=== PATIENT | male | born 1980 | race Two or more races ===

== ENCOUNTER 2025-03-01 16:53 | Emergency (ER) | payer OTHER ==
[~2025-03-01] VITALS: Ht 162.6 cm; Wt 96.6 kg
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
[2025-03-01 18:00] LABS: Urine Bacteria None Seen /hpf (None Seen)
[2025-03-01] MEDS: TETANUS-DIPTH-ACEL PERTUSSIS 0.5ML SYR Tdap IM ONE (18:06)
[2025-03-01] MEDS: LIDOCAINE 1% HCL (LOCAL ANESTH.) INJ 20ML MDV ID ONE (18:06)
[2025-03-01 18:07] VITALS: PULSE 120; RESP 20; O2SAT 95
[2025-03-01 18:08] LABS: Urine Blood Negative /uL (Negative); Urine Clarity Clear (Clear); Urine Color Colorless (Yellow); Urine Protein, UAD Negative (Negative); Urine Specific Gravity 1.004 (1.001-1.035); Urine Squamous Epithelial Cell None Seen /hpf (<5); Urine Urobilinogen Normal (Negative); Urine WBC < 1 /HPF (0-3)
--- NOTE | 2025-03-01 18:40 | DVH ---
CHEST RADIOGRAPH Indication: injury Technique: Single frontal view of the chest was obtained Comparison: None FINDINGS: Lines and Tubes: None Lungs and Pleura: No focal consolidation. No effusion. No pneumothorax. Cardiomediastinal contours: Unremarkable Bones: No acute osseous abnormality. IMPRESSION: No acute cardiopulmonary disease.
--- NOTE | 2025-03-01 18:44 | DVH ---
CLINICAL INDICATION: injury TECHNIQUE: 2 radiographic views of the right wrist were obtained. Comparison: None FINDINGS/IMPRESSION: There is no evidence of acute fracture or dislocation. The visualized joint space is well maintained. The alignment is anatomical. There is no radiopaque foreign body.
--- NOTE | 2025-03-01 18:44 | DVH ---
EXAM: CT HEAD WITHOUT CONTRAST INDICATION: injury TECHNIQUE: CT of the head without intravenous contrast. Radiation Dose Information: CT Dose: CTDI volume is 63.03 mGy. Dose-length product is 1241.85 mGy*cm The dose indicators for CT are the volume Computed Tomography (CT) Dose Index (CTDIvol) and the Dose Length Product (DLP), and are measured in units of mGy and mGy-cm, respectively. These indicators are not patient dose, but values generated from the CT scanner acquisition factors. The report includes radiation exposure data for exposures received during this examination. COMPARISON: None FINDINGS: There is no evidence of acute intracranial hemorrhage, extra-axial collection, mass effect, midline s hift, herniation or hydrocephalus. The ventricles, sulci and cisterns are age appropriate. The pérez-white differentiation is intact. Patchy periventricular and subcortical white matter hypoattenuation is nonspecific but may be related to small vessel ischemic disease. Mild mucosal thickening right frontal and ethmoid sinuses and mastoid air cells are clear. Tissue injury over the right frontal sinus laceration scalp. IMPRESSION: 1. No acute intracranial abnormality. 2. Right scalp laceration over the frontal sinus. 3. Mucosal thickening right frontal and ethmoid sinuses may represent hemorrhage.
--- NOTE | 2025-03-01 18:45 | DVH ---
CLINICAL INDICATION: injury TECHNIQUE: 2 radiographic views of the right humerus were obtained. Comparison: None FINDINGS/IMPRESSION: There is no evidence of acute fracture or dislocation. The visualized joint space is well maintained. The alignment is anatomical. There is no radiopaque foreign body.
--- NOTE | 2025-03-01 18:45 | DVH ---
CLINICAL INDICATION: injury TECHNIQUE: 3 radiographic views of the right shoulder were obtained. Comparison: None FINDINGS/IMPRESSION: There is no evidence of acute fracture or dislocation. The visualized joint space is well maintained. The alignment is anatomical. There is no radiopaque foreign body.
--- NOTE | 2025-03-01 18:46 | DVH ---
CLINICAL INDICATION: injury TECHNIQUE: radiographic views of the right elbow and right wrist were obtained. Comparison: None FINDINGS/IMPRESSION: There is no evidence of acute fracture or dislocation. The visualized joint space is well maintained. The alignment is anatomical. There is no radiopaque foreign body.
--- NOTE | 2025-03-01 18:48 | DVH ---
CLINICAL INDICATION: injury TECHNIQUE: 3 radiographic views of the right hand were obtained. Comparison: None FINDINGS/IMPRESSION: There is acute mildly displaced fracture through the dorsal base of the 5th digit distal phalanx with associated soft tissue edema. No dislocation.
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
[2025-03-01 19:25] VITALS: BP 125/83; PULSE 87; RESP 16; TEMP 98; O2SAT 97
[2025-03-01] MEDS ORDERED: MUPI2CRE17 EX (19:34)
[2025-03-01] MEDS: ONDANSETRON HCL 4 MG/2 ML VIAL IV ONE ×2 (19:38)
[2025-03-01] MEDS: HYDROcodone-ACET 10/325MG TAB PO ONE (19:57)
== END 2025-03-01 20:08 | disposition home or self-care (01) ==
LOC: ER 16:53
DX: S01.81XA Laceration without foreign body of other part of head, initial encounter (principal); S40.211A Abrasion of right shoulder, initial encounter; Z79.899 Other long term (current) drug therapy; V89.2XXA Person injured in unspecified motor-vehicle accident, traffic, initial encounter; Y93.89 Activity, other specified; Y92.89 Other specified places as the place of occurrence of the external cause; Y99.8 Other external cause status
CPT/HCPCS: 12013; 70450; 70486; 71045; 72125; 73030; 73060; 73080; 73100; 73130; 81001; 90471; 90715; 96374; 99285; J2003; J2405